=== PATIENT | male | born 1945 | race Two or more races ===

== ENCOUNTER 2022-01-29 19:47 | Inpatient (IN) | payer MEDICARE, OTHER ==
[~2022-01-29] VITALS: Ht 165.1 cm; Wt 52.6 kg
--- NOTE | 2022-01-29 20:10 | NUR ---
KALEE- DAUGHTER IN LAW. [phone]
[2022-01-29] MEDS ORDERED: LIDOCAINE 2% JEL UROJET 10 ML MM ONE (20:19)
[2022-01-29] MEDS ORDERED: IV NS 0.9% 1,000 ML BAG IV ONE ×2 (20:30→22:00)
--- NOTE | 2022-01-29 20:33 | NUR ---
BIBRA FROM SNF FOR C/O ALOC, FEVER, AND TACHYCARDIA. PT CHANGED INTO GOWN AND PLACED ON MONITOR AND NOTED TO HAVE LOW 02 SAT AND TACHYCARDIC. PLACED ON NRB 15LPM WITH INPROVEMENT TO O2. PT AWAKE X0. WAS AT BEDSIDE FOR EVAL.
--- NOTE | 2022-01-29 20:36 | NUR ---
URINE COLLECTED AND SENT TO LAB
--- NOTE | 2022-01-29 20:36 | NUR ---
COVID SWAB DONE AND SENTT O LAB
--- NOTE | 2022-01-29 20:36 | NUR ---
BLOOD AND CULTURES COLLECTED AND SENTT O LAB
--- NOTE | 2022-01-29 20:42 | NUR ---
MRSA SWAB COLLECTED AND SENT TO LAB. PATIENT'S BELONGINGS LIST DONE.
[2022-01-29 20:57] LABS: BASOPHILS # (AUTO) 0.1 K/uL (0.0-0.2); BASOPHILS % (AUTO) 0.5 % (0.0-2.0); EOSINOPHILS % (AUTO) 0.3 % (0.0-6.0); HEMATOCRIT 47 % (39-51); HEMOGLOBIN 15.4 g/dL (13.5-17.5); LYMPHOCYTES # (AUTO) 1.3 K/uL (0.8-4.8); LYMPHOCYTES % (AUTO) 8.3 % (20.0-44.0); MEAN CORPUSCULAR HGB CONC 33 g/dl (31.0-36.0); MEAN CORPUSCULAR VOLUME 92 fL (80-96); MONOCYTES # (AUTO) 0.8 K/uL (0.1-1.30); MONOCYTES % (AUTO) 5.3 % (2.0-12.0); NEUTROPHILS # (AUTO) 13.3 K/uL (1.8-8.9); NEUTROPHILS % (AUTO) 85.6 % (43.0-81.0); PLATELET COUNT (AUTO) 283 K/uL (150-450); RED BLOOD CELL COUNT(AUTO) 5.18 MIL/uL (4.5-6.0); WHITE BLOOD COUNT (AUTO) 15.6 K/uL (4.3-11.0)
[2022-01-29 20:58] LABS: BILIRUBIN,URINE NEGATIVE (NEGATIVE); COLOR,URINE YELLOW (YELLOW); LEUKOCYTE ESTERASE ,URINE NEGATIVE (NEGATIVE); NITRITE, URINE NEGATIVE (NEGATIVE); PH,URINE 6.5 (5.0-8.0); PROTEIN,URINE NEGATIVE (NEGATIVE); UGLUCOSE NEGATIVE (NEGATIVE)
[2022-01-29 21:09] LABS: BACTERIA,URINE None seen /HPF (None Seen); WBC,URINE 0-2 /HPF (0-3)
[2022-01-29 21:10] LABS: MUCUS,URINE Few /LPF (None Seen); URINE AMORPHOUS URATE Many /HPF (None Seen)
[2022-01-29 21:26] LABS: SQUAMOUS EPITHELIAL CELL,UR 0-2 /HPF (None Seen)
[2022-01-29] MEDS ORDERED: CEFTRIAXONE 1GM BAG (ER ONLY) 50 ML IV ONE ×2 (22:00→22:13)
[2022-01-29] MEDS ORDERED: ONDANSETRON HCL/PF 4 MG/2 ML VIAL IVP PRN (22:30)
[2022-01-29] MEDS ORDERED: MAGNESIUM HYDROXIDE 30 ML UDC PO PRN (22:30)
[2022-01-29] MEDS ORDERED: MAG HYDROX/AL HYDROX/SIMETH 30 ML UDC PO PRN (22:30)
[2022-01-29] MEDS ORDERED: IV NS 0.9% 1,000 ML IV PRN (22:30)
[2022-01-29 22:59] LABS: CALCIUM, SERUM 9.9 mg/dL (8.5-10.1); CARBON DIOXIDE 34 mmol/L (21-32); CHLORIDE 113 mmol/L (98-107); CREATININE 0.9 mg/dL (0.6-1.3); GLUCOSE 224 mg/dL (74-106); SODIUM SERUM 153 mmol/L (136-145); UREA NITROGEN, BLOOD 38 mg/dL (7-18)
[2022-01-29 23:06] LABS: ALANINE AMINOTRANSFERASE 50 U/L (12-78); ALBUMIN 3.9 g/dL (3.4-5.0); ALKALINE PHOSPHATASE 101 U/L (46-116); ASPARTATE AMINOTRANSFERASE 41 U/L (15-37); BILIRUBIN,DIRECT 0.2 mg/dL (0.0-0.2); BILIRUBIN,TOTAL 0.9 mg/dL (0.2-1.0); TOTAL PROTEIN, SERUM 9.1 g/dL (6.4-8.2)
[2022-01-30] VITALS (37 sets, daily range): BP systolic 120–160; BP diastolic 57–93
--- NOTE | 2022-01-30 00:10 | NUR ---
ROOM 308-1
[2022-01-30] MEDS ORDERED: CEFEPIME 1 GM in IV D5W 50 ML IV ONE (01:00)
--- NOTE | 2022-01-30 01:10 | NUR ---
REPORT GIVEN TO JANAE
--- NOTE | 2022-01-30 01:49 | NUR ---
PT TRANSPORTED TO ROOM 309 ON MEDICAL OFFICE ASSISTANT INSTRUCTOR PER ACLS PROTOCOL
--- NOTE | 2022-01-30 02:00 | NUR ---
CLINICAL SOCIAL WORK THERAPIST NOTE PATIENT ARRIVED IN UNIT AT 0141 AM VIA STRETCHER, ACCOMPANIED BY 2 ER PERSONNELS. A/OX1, POOR HISTORIAN. NO S/S OF APPARENT DISTRESS IN 10LPM OF O2 VIA SIMPLE MASK. NOT EXHIBITING PAIN VIA FLACC. TELE MONITOR READING SR 97 BPM. PATIENT FULL CODE, POLST IN FILE. NEW ID BAND ON PATIENT. NO BELONGINGS BUT THE GOWN FROM HIS SNF. IV ACCESS ON L. WRIST #18G-- STARTED ON IV NS @75MLS.HR. G-TUBE NOTED AND FLUSHED. SAFETY IN PLACE. ADMISSION V/S FOLLOWS: 147/78, HR-98, RR-19, T-98.0, SATURATION 96%. WILL FOLLOW THROUGH DOCTOR'S ORDERS.
[2022-01-30] MEDS: ACETAMINOPHEN 325 MG TABLET PO PRN ×3 (02:20→23:47)
[2022-01-30] MEDS ORDERED: CEFEPIME 1 GM VIAL ONE (02:33)
[2022-01-30] MEDS: ENOXAPARIN SODIUM 40 MG/0.4 ML DISP.SYRIN SQ SCH (04:40)
[2022-01-30] MEDS: GLUCERNA 1.2 1,000 ML BOTTLE GT PRN (04:41)
--- NOTE | 2022-01-30 06:25 | NUR ---
STRATEGIC PLANNING ANALYST NOTE REPORT GIVEN TO WYATT KAPOOR FOR CONTINUITY OF CARE
[2022-01-30 07:09] LABS: BASOPHILS # (AUTO) 0.1 K/uL (0.0-0.2); BASOPHILS % (AUTO) 0.4 % (0.0-2.0); HEMATOCRIT 43 % (39-51); HEMOGLOBIN 13.9 g/dL (13.5-17.5); LYMPHOCYTES # (AUTO) 1.2 K/uL (0.8-4.8); LYMPHOCYTES % (AUTO) 8.2 % (20.0-44.0); MEAN CORPUSCULAR HGB CONC 32 g/dl (31.0-36.0); MEAN CORPUSCULAR VOLUME 92 fL (80-96); MONOCYTES # (AUTO) 0.6 K/uL (0.1-1.30); MONOCYTES % (AUTO) 4.2 % (2.0-12.0); NEUTROPHILS # (AUTO) 12.2 K/uL (1.8-8.9); NEUTROPHILS % (AUTO) 87.2 % (43.0-81.0); PLATELET COUNT (AUTO) 227 K/uL (150-450); RED BLOOD CELL COUNT(AUTO) 4.68 MIL/uL (4.5-6.0); WHITE BLOOD COUNT (AUTO) 14.1 K/uL (4.3-11.0)
[2022-01-30 07:11] LABS: CALCIUM, SERUM 8.3 mg/dL (8.5-10.1); CARBON DIOXIDE 30 mmol/L (21-32); CHLORIDE 115 mmol/L (98-107); CREATININE 0.9 mg/dL (0.6-1.3); GLUCOSE 190 mg/dL (74-106); MAGNESIUM 2.3 mg/dL (1.8-2.4); PHOSPHORUS 2.6 mg/dL (2.5-4.9); SODIUM SERUM 154 mmol/L (136-145); UREA NITROGEN, BLOOD 26 mg/dL (7-18)
[2022-01-30 07:18] LABS: CHOLESTEROL 91 mg/dL (<200); HDL CHOLESTEROL 44 mg/dL (40-60); LDL 42 mg/dL (0-99); TRIGLYCERIDES 39 mg/dL (30-150)
--- NOTE | 2022-01-30 07:30 | NUR ---
DRIVER LICENSE REVIEWING OFFICER OPENING NOTES: RECEIVED PT ASLEEP BUT EASILY ROUSED. A/OX1, RESPONDS TO PAIN STIMULI AND NODS HEAD TO YES OR NO QUESTION. . NO S/S OF APPARENT DISTRESS @ 10LPM OF O2 VIA SIMPLE MASK. NOT EXHIBITING PAIN VIA FLACC. TELE MONITOR READING ST 102 BPM. PATIENT FULL CODE, POLST ON FILE. IV ACCESS ON L. WRIST #18G, STARTED ON IV NS @75MLS.HR. G-TUBE FEEDING GLUCERNA 1.2 @ 55ML/HR. SAFETY IN PLACE: HOB ELEVATED AND LOCKED AT LOWEST POSITION, SIDERAILS UP X3, CALL LIGHT AND TABLE WITHIN REACH WILL CONT TO MONITOR.
[2022-01-30] MEDS ORDERED: NUT.237L30 GT (08:06)
[2022-01-30] MEDS ORDERED: ONDA4TAB5 GT (08:06)
[2022-01-30] MEDS ORDERED: SENN-261 GT (08:06)
[2022-01-30] MEDS ORDERED: AMLO-213 GT (08:06)
[2022-01-30] MEDS ORDERED: CLON0.3P TD (08:06)
[2022-01-30] MEDS ORDERED: ATOR10TA GT (08:06)
[2022-01-30] MEDS ORDERED: POLY17PO4 GT (08:06)
[2022-01-30] MEDS ORDERED: ACET-868 GT ×2 (08:06)
[2022-01-30] MEDS ORDERED: HYDR-4076 GT (08:06)
[2022-01-30] MEDS ORDERED: DEXT50DI8 IV (08:06)
[2022-01-30] MEDS ORDERED: BISA10SU11 RC (08:06)
[2022-01-30] MEDS ORDERED: ASPI-1169 GT (08:06)
[2022-01-30] MEDS ORDERED: INSU100V27 SQ (08:06)
[2022-01-30] MEDS ORDERED: MAGN400O6 GT (08:06)
[2022-01-30] MEDS ORDERED: NA P133E RC (08:06)
[2022-01-30] MEDS ORDERED: ENOX40DI SQ (08:06)
[2022-01-30] MEDS: CEFEPIME 2 GM in IV D5W 100 ML IV SCH ×2 (08:42→21:12)
[2022-01-30] MEDS ORDERED: GLUCERNA 1.2 1,000 ML BOTTLE NG SCH (09:00)
--- NOTE | 2022-01-30 09:30 | NUR ---
CLINICAL TRIAL SPECIALIST NOTES: L. WRIST IV ACCESS SHOWING S/S OF INFILTRATION, DC'D, APPLIED ICE PACK TO AFFECTED AREA.
[2022-01-30] MEDS: IPRATROPIUM NEB FS 0.5 MG/2.5 ML AMPUL.NEB NEB SCH ×4 (09:55→22:47)
[2022-01-30] MEDS ORDERED: ALBUTEROL HALF STRENGTH 1.25 MG/3 ML VIAL.NEB NEB SCH (10:00)
--- NOTE | 2022-01-30 10:00 | NUR ---
MOLD DESIGNER NOTES: NS DC'D PER MD ORDER, REPLACED WITH D5W
[2022-01-30 10:35] LABS: BAND % (MANUAL) 8 % (0.0-5.0); BASOPHILS % (MANUAL) 0 % (0.0-2.0); EOSINOPHILS % (MANUAL) 0 % (0-4); LYMPHOCYTES % (MANUAL) 11 % (16-48); MONOCYTES % (MANUAL) 6 % (0-11.0); NEUTROPHILS % (MANUAL) 75 (42-76)
[2022-01-30] MEDS: POTASSIUM CHLORIDE 20 MEQ POWDER PACKET NG SCH ×3 (10:43→12:45)
[2022-01-30] MEDS: ALBUTEROL HALF STRENGTH 1.25 MG/3 ML VIAL.NEB NEB SCH ×4 (11:30→22:48)
[2022-01-30] MEDS ORDERED: DEXTROSE 50%-WATER 50 ML DISP.SYRIN IV PRN (12:30)
[2022-01-30] MEDS: BLOOD SUGAR DIAGNOSTIC 1 EACH STRIP IN SCH ×2 (12:48→18:00)
--- NOTE | 2022-01-30 14:30 | NUR ---
RN NOTES RECEIVED PT IN ROOM 251, PT IS ALERT/ NONVERBAL , MUMBLES AT TIMES , FOLLOWS SIMPLE COMMAND, ON NONREBREATHER MASK , SOB , O2 SAT IN MID 90' , HR IN 120'S, TEM 100.2 AXILLARY , TF AT 55 CC/HR RUNNING VIA PEG , NO RESIDUAL NOTED, NEW IV SITES STARTED ON R ARM , ROCHA DRAINING TO GRAVITY, BM x1 NOTED, SR UP x3,CALL LIGHT WITHIN EASY REACH, BED LOCKED AND IN LOWEST POSITION, CONTINUE TO MONITOR .
[2022-01-30] MEDS: IV D5W 1,000 ML IV PRN (15:09)
[2022-01-30 15:19] LABS: ABG BASE EXCESS 0.3 mmol/L; ABG OXYGEN SATURATION 98.9 % (92.0-98.5); ABG PCO2 44.9 mmHg (35.0-45.0); ABG PH 7.378 (7.350-7.450); ABG PO2 154.7 mmHg (75.0-100.0); AaDO2 404.8 mmHg; COHb 0.5 % (0.5-1.5); MetHb 0.5 % (0.0-1.5); O2Hb 97.9 % (94.0-97.0); SITE, ABG Right Radial; VENT MODE, BG NRB MASK 85%
--- NOTE | 2022-01-30 15:44 | NUR ---
TOOLING MANAGER NOTES: PT TRANSFERED TO ICU PER MD YANNA D/T CONTINUED O2 DESATURATION DESPITE OF RT TREATMENT X3. BP- 136/66, HR- 129, TEMP- 98.7, O2 SAT @ 90% UPON TRANSFER. ENDORSED TO RUG DYER.
--- NOTE | 2022-01-30 15:46 | NUR ---
RT PATIENT REC'D TRANSFER FROM [facility]. ABG DONE AND FIO2 TITRATED DOWN FROM NRB MASK TO NC 5L. RN AWARE.
[2022-01-30] MEDS: INSULIN REGULAR, HUMAN 100 UNIT/ML 3 ML VIAL SQ PRN (18:00)
--- NOTE | 2022-01-30 18:27 | NUR ---
RN NOTES PT IS MORE ALERT, ON FACE MASK AT 10L , O2 SAT WNL, NONVERBAL , NO DISTESS NOTED, WILL ENDORSE TO EQUIPMENT OPERATOR WAREHOUSE NURSE FOR CONTINUITY OF CARE .
--- NOTE | 2022-01-30 19:50 | NUR ---
ICU/BAG MAKER RT WAS ABLE TO REMOVE NON REBREATHER MASK TO SIMPLE MASK AT 10 LITERS. WILL MONITOR THIS PT FOR ANY RESP. DISTRESS
--- NOTE | 2022-01-30 22:53 | NUR ---
ICU/SPRAY GUN OPERATOR PT IS TRYING TO GET OUT OF BED, PULLING AT IV'S. PLACED RESTRAINTS ON PT TO AVOID THIS. WILL CONTINUE TO MONITOR THIS.
--- NOTE | 2022-01-30 23:19 | NUR ---
ICU/BLOCK CABLEMAN PT WAS DEEP SUCTION FOR RESP. SPECIMEN, ORDERED BY ID. THEN PLACED ON 6 LITERS N/C . WILL MONITOR THIS PT.
[2022-01-31] VITALS (61 sets, daily range): BP systolic 109–173; BP diastolic 21–100
[2022-01-31] MEDS: INSULIN REGULAR, HUMAN 100 UNIT/ML 3 ML VIAL SQ PRN ×3 (00:18→17:23)
[2022-01-31] MEDS: BLOOD SUGAR DIAGNOSTIC 1 EACH STRIP IN SCH ×5 (00:19→23:59)
--- NOTE | 2022-01-31 01:00 | NUR ---
ICU/FLOOR SPACE ALLOCATOR PT HAD TEMP. 101.1, GAVE TYLENOL VIA G/TUBE AND COOLING MEASURES DONE ALONG WITH ICE BATH TO HELP REDUCE FEVER.
[2022-01-31] MEDS: IPRATROPIUM NEB FS 0.5 MG/2.5 ML AMPUL.NEB NEB SCH ×6 (03:13→23:33)
[2022-01-31] MEDS: ALBUTEROL HALF STRENGTH 1.25 MG/3 ML VIAL.NEB NEB SCH ×6 (03:13→23:33)
[2022-01-31] MEDS: GLUCERNA 1.2 1,000 ML BOTTLE GT PRN (04:16)
[2022-01-31] MEDS: IV D5W 1,000 ML IV PRN ×2 (04:16→16:43)
[2022-01-31 04:17] LABS: BASOPHILS % (AUTO) 0.3 % (0.0-2.0); EOSINOPHILS % (AUTO) 0.2 % (0.0-6.0); HEMATOCRIT 41 % (39-51); HEMOGLOBIN 13.7 g/dL (13.5-17.5); LYMPHOCYTES # (AUTO) 1.7 K/uL (0.8-4.8); LYMPHOCYTES % (AUTO) 11.8 % (20.0-44.0); MEAN CORPUSCULAR HGB CONC 33 g/dl (31.0-36.0); MEAN CORPUSCULAR VOLUME 92 fL (80-96); MONOCYTES # (AUTO) 0.7 K/uL (0.1-1.30); MONOCYTES % (AUTO) 4.7 % (2.0-12.0); NEUTROPHILS # (AUTO) 11.9 K/uL (1.8-8.9); PLATELET COUNT (AUTO) 202 K/uL (150-450); RED BLOOD CELL COUNT(AUTO) 4.52 MIL/uL (4.5-6.0); WHITE BLOOD COUNT (AUTO) 14.3 K/uL (4.3-11.0)
[2022-01-31 04:22] LABS: CALCIUM, SERUM 8.5 mg/dL (8.5-10.1); CARBON DIOXIDE 32 mmol/L (21-32); CHLORIDE 112 mmol/L (98-107); CREATININE 0.9 mg/dL (0.6-1.3); GLUCOSE 98 mg/dL (74-106); MAGNESIUM 2.4 mg/dL (1.8-2.4); PHOSPHORUS 1.8 mg/dL (2.5-4.9); POTASSIUM 3.4 mmol/L (3.5-5.1); SODIUM SERUM 148 mmol/L (136-145); UREA NITROGEN, BLOOD 20 mg/dL (7-18)
--- NOTE | 2022-01-31 04:36 | NUR ---
ICU/VALVE GRINDER UNABLE TO SCAN THE TUBE FEEDING DUE TO IT SCANNED OVER THE MOUNT@1100MNL. HAD JUST TO ADMINISTRATE IT.
--- NOTE | 2022-01-31 07:21 | NUR ---
RN NOTE PATIENT RECEIVED IN BED, EYES CLOSED, WITH SOME RESTLESSNESS. PATIENT ON 8L O2 SIMPLE MASK SAT 95% ON BEDSIDE MONITOR. GTUBE IN PLACE RUNNING GLUCERNA AT 55C/HR. RIGHT AC20G AND RIGHT HAND 22G IV IN PLACE RUNNING D5W AT 100CC/HR. ROCHA CATH IN PLACE, PATENT AND DRAINING CLEAR ELIER COLOR URINE. BILATERAL SOFT WRIST RESTRAIN IN PLACE, PT RESTLESS ATTEMPTING TO GET OUT OF BED. BED LOCKED AND IN LOWEST POSITION, CALL LIGHT WITHIN REACH, 3 SIDE RAILS UP.
[2022-01-31] MEDS: ENOXAPARIN SODIUM 40 MG/0.4 ML DISP.SYRIN SQ SCH (08:20)
[2022-01-31] MEDS: CEFEPIME 2 GM in IV D5W 100 ML IV SCH (08:20)
[2022-01-31] MEDS ORDERED: POTASSIUM CHLORIDE 20 MEQ POWDER PACKET NG SCH (10:30)
--- NOTE | 2022-01-31 11:40 | NUR ---
SS Note: SW requested to facilitate call with family and MD for possible trach placement. SW discussed with Jeannette Rajan DO. Per Dr. Rajan, Dr. Flower has suggest we continue to monitor the pt. and maybe tomorrow we can have a more definite answer. SW will be available as needed. SW notified charge nurse.
[2022-01-31] MEDS: PIPERACILLIN /TAZOBACTAM 3.375 G in IV D5W 100 ML IV SCH ×2 (12:20→21:14)
[2022-01-31] MEDS ORDERED: IV NS 0.9% 250 ML IV PRN (12:30)
[2022-01-31] MEDS ORDERED: PIPERACILLIN /TAZOBACTAM 3.375 G in IV D5W 50 ML IV SCH (13:00)
[2022-01-31] MEDS ORDERED: NEUTRA PHOS 1 POWD.PACKET GT ONE (16:00)
--- NOTE | 2022-01-31 18:20 | NUR ---
RN NOTE PT PULLED RIGHT HAND 22G IV.
--- NOTE | 2022-01-31 18:30 | NUR ---
RN NOTE PATIENT REMAINS IN BED, EYES OPEN, WITH SOME RESTLESSNESS. PATIENT ON 8L O2 SIMPLE MASK SAT 100% ON BEDSIDE MONITOR. GTUBE IN PLACE RUNNING GLUCERNA AT 55C/HR. RIGHT AC 20G IN PLACE RUNNING D5W AT 100CC/HR. ROCHA CATH IN PLACE, PATENT AND DRAINING CLEAR ELIER COLOR URINE. BILATERAL SOFT WRIST RESTRAIN IN PLACE, SKIN WARM AND INTACT. ALL NEEDS ATTENDED DURING SHIFT. BED LOCKED AND IN LOWEST POSITION, CALL LIGHT WITHIN REACH, 3 SIDE RAILS UP. WILL ENDORSE TO POLICY ANALYST NURSE FOR JAKE.
--- NOTE | 2022-01-31 20:00 | NUR ---
RN OPENING NOTES RECEIVED PATIENT ON BED, ORIENTED TO SELF, PASHTO SPEAKING, WITH SOME RESTLESSNESS. ON SIMPLE MASK @ 8LPM SATING AT 100%. RESPIRATORY EVEN AND UNLABORED, NO SOB NOTED. NOTED WITH TEMPERATURE 99.7, COOLING MEASURE PROVIDED, ACETAMINOPHEN 650MG VIA PEG TUBE GIVEN. NO S/S OF DISTRESS NOTED. PATIENT RAC #20, FLUSHED WITH NS, NO S/S OF INFILTRATION NOTED AT SITE. WITH IVF OF D5W @ 100 ML/HR. PEG- TUBE PATENT, INTACT, VERIFIED PLACEMENT BY AUSCULTATION, NO RESIDUAL NOTED UPON ASPIRATION, RUNNING WITH GLUCERNA 1.2 @ 55 ML/HR X 20 HRS. HEAD OF BED KEPT ELEVATED. ROCHA CATHETER DRAINING WITH CLEAR YELLOW URINE OUTPUT VIA GRAVITY. WITH BILATERAL SOFT WRIST RESTRAINT, REASSESSED Q2HRS. ALL SAFETY MEASURE PROVIDED. BED IN LOWEST POSITION, LOCKED. BED ALARM ARMED. CONTINUE TO MONITOR.
[2022-01-31] MEDS: ACETAMINOPHEN 325 MG TABLET PO PRN (20:19)
--- NOTE | 2022-01-31 21:00 | NUR ---
RN NOTES TEMPERATURE RECHECKED AND OBTAINED 98.1 F DEGREES, PATIENT AWAKE, NOT IN DISTRESS. CONTINUE TO MONITOR
[2022-02-01] VITALS (27 sets, daily range): BP systolic 112–154; BP diastolic 55–112
[2022-02-01] MEDS: INSULIN REGULAR, HUMAN 100 UNIT/ML 3 ML VIAL SQ PRN ×5 (00:01→23:57)
[2022-02-01] MEDS: IV D5W 1,000 ML IV PRN ×2 (03:06→13:45)
[2022-02-01] MEDS: ALBUTEROL HALF STRENGTH 1.25 MG/3 ML VIAL.NEB NEB SCH ×6 (03:51→23:12)
[2022-02-01] MEDS: IPRATROPIUM NEB FS 0.5 MG/2.5 ML AMPUL.NEB NEB SCH ×6 (03:51→23:12)
[2022-02-01 04:05] LABS: BASOPHILS # (AUTO) 0.1 K/uL (0.0-0.2); BASOPHILS % (AUTO) 0.4 % (0.0-2.0); HEMATOCRIT 38 % (39-51); HEMOGLOBIN 12.5 g/dL (13.5-17.5); LYMPHOCYTES # (AUTO) 1.3 K/uL (0.8-4.8); LYMPHOCYTES % (AUTO) 9.7 % (20.0-44.0); MEAN CORPUSCULAR HGB CONC 33 g/dl (31.0-36.0); MEAN CORPUSCULAR VOLUME 90 fL (80-96); MONOCYTES # (AUTO) 0.8 K/uL (0.1-1.30); MONOCYTES % (AUTO) 5.5 % (2.0-12.0); NEUTROPHILS # (AUTO) 11.2 K/uL (1.8-8.9); NEUTROPHILS % (AUTO) 81.4 % (43.0-81.0); PLATELET COUNT (AUTO) 177 K/uL (150-450); RED BLOOD CELL COUNT(AUTO) 4.17 MIL/uL (4.5-6.0); WHITE BLOOD COUNT (AUTO) 13.8 K/uL (4.3-11.0)
[2022-02-01] MEDS: GLUCERNA 1.2 1,000 ML BOTTLE GT PRN (04:11)
[2022-02-01 04:40] LABS: CALCIUM, SERUM 8.1 mg/dL (8.5-10.1); CARBON DIOXIDE 32 mmol/L (21-32); CHLORIDE 104 mmol/L (98-107); CREATININE 0.8 mg/dL (0.6-1.3); GLUCOSE 181 mg/dL (74-106); MAGNESIUM 2.1 mg/dL (1.8-2.4); PHOSPHORUS 1.6 mg/dL (2.5-4.9); POTASSIUM 3.6 mmol/L (3.5-5.1); SODIUM SERUM 140 mmol/L (136-145); UREA NITROGEN, BLOOD 13 mg/dL (7-18)
[2022-02-01] MEDS: PIPERACILLIN /TAZOBACTAM 3.375 G in IV D5W 100 ML IV SCH ×3 (05:30→20:51)
[2022-02-01] MEDS: BLOOD SUGAR DIAGNOSTIC 1 EACH STRIP IN SCH ×3 (05:52→17:18)
--- NOTE | 2022-02-01 07:00 | NUR ---
STRICKLER ATTENDANT Bedside report taken from Frederick SCHNEIDER. pt asleep, arousable. obtunded, does not open eyes, does not follow commands, moves bue and ble 3/5. PERRLA. pt on 8 L simple mask, tolerating well. umm lung sounds coarse and diminished at the bases. pt has peg tube, pt on glucerna 1.2 at 55ml/hr tolerating well. no residuals noted. Pt has nicholas. intact and draining clear, mona colored urine. pt has bruising in bue, no pressure ulcers noted. all lines traced. all drips verified. safety measures in place. no signs of acute distress at this time. will continue to monitor.
--- NOTE | 2022-02-01 07:16 | NUR ---
RN NOTES PATIENT SLEEPING ON BED, REMAIN STABLE. RESPIRATORY EVEN AND UNLABORED, NO SOB NOTED. NO S/S OF DISTRESS NOTED. WITH IVF OF D5W @ 100 ML/HR. PEG- TUBE PATENT, INTACT, VERIFIED PLACEMENT BY AUSCULTATION, NO RESIDUAL NOTED UPON ASPIRATION, RUNNING WITH GLUCERNA 1.2 @ 55 ML/HR X 20 HRS. HEAD OF BED KEPT ELEVATED. ROCHA CATHETER DRAINING WITH CLEAR YELLOW URINE OUTPUT VIA GRAVITY. WITH BILATERAL SOFT WRIST RESTRAINT, REASSESSED Q2HRS. ALOL DUE MEDS GIVEN. ALL SAFETY MEASURE PROVIDED. BED IN LOWEST POSITION, LOCKED. BED ALARM ARMED. REPORT GIVEN TO MORNING SHIFT NURSE FOR JAKE.
[2022-02-01] MEDS: ENOXAPARIN SODIUM 40 MG/0.4 ML DISP.SYRIN SQ SCH (08:58)
[2022-02-01] MEDS ORDERED: NEUTRA PHOS 1 POWD.PACKET GT ONE (10:00)
--- NOTE | 2022-02-01 14:17 | NUR ---
MEAT COOLER Pt bathed and cleaned. linen change done. skin check done, skin intact, no new wounds or pressure ulcers noted. pt tolerated well. pt awake, alert and oriented x3, follows commands at this time. umm wrist restraints removed, pt informed not to remove or pull lines and not to get out of bed. pt understands and is compliant at this time. pt denies any pain or discomfort. vitals stable. safety measures in place. will continue to monitor.
--- NOTE | 2022-02-01 18:15 | NUR ---
ELECTROSTATIC PAINT OPERATOR Pt transfered to tele room 110 via bed with monitor. pt has no belongings at bedside. pt awake, alert and oriented but restless. bedside report given to [facility] nurse Obey SCHNEIDER. all lines traced. vitals stable. safety measures in place. pt reoriented to new room. no signs of acute distress at this time.
--- NOTE | 2022-02-01 18:16 | NUR ---
RN NOTE RECEIVED PATIENT REPORT FROM ICU NURSE. PATIENT ALERT AND ORIENTED TIMES 4. ON NASAL CANULA 4 LITERS PER MINUTE SATURATION NORMAL. NORMAL SINUS RHYTHM ON TELEMETRY MONITORING. IV ACCESS ON RIGHT FOREARM CURRENTLY RUNNING D5W AT 75 MLS/HR. G-TUBE RUNNING FEEDING AT 55 MLS/HR, NO RESIDUAL. ROCHA CATHETER NOTED, DRAINING YELLOW URINE. SAFETY MEASURES IMPLEMENTED, CALL LIGHT WITHIN REACH, BED IN LOWEST POSITION, SIDE RAILS UP. WILL ENDORSE TO NIGHTSHIFT RN FOR CONTINUATION OF CARE.
--- NOTE | 2022-02-01 19:10 | NUR ---
RN NOTES RECEIVED REPORT FROM MORNING RN. PATIENT IN BED A/0 X2-3. WITH OXYGEN INHALATION AT 4 LPM VIA NASAL CANULA TOLERATING WELL SATING 99% NO SOB NO DISTRESS NOTED AT THIS TIME. WITH IV ACCESS AT R AC PATENT FLUSHES WELL. ON CONTINUOS IVF D5W @ 100CC/HR. WITH GTF PATENT RUNNING GLUCERNA @ 55CC/HR X 20 HOURS. WITH ROCHA CATHETER CONNECTED TO URINE BAG PATENT DRAINING YELLOWISH URINE OUTPUT. ALL SAFETY MEASURES IN PLACE AT ALL TIMES. HOB ELEVATED. CALL LIGHT WITHIN REACH. WILL CLOSELY MONITOR THE PATIENT
[2022-02-02] VITALS: BP 142/88
[2022-02-02] MEDS: BLOOD SUGAR DIAGNOSTIC 1 EACH STRIP IN SCH ×4 (00:23→17:25)
[2022-02-02] MEDS: IV D5W 1,000 ML IV PRN (01:43)
[2022-02-02] MEDS: ALBUTEROL HALF STRENGTH 1.25 MG/3 ML VIAL.NEB NEB SCH ×4 (03:13→14:40)
[2022-02-02] MEDS: IPRATROPIUM NEB FS 0.5 MG/2.5 ML AMPUL.NEB NEB SCH ×4 (03:13→14:39)
[2022-02-02 04:00] VITALS: BP 123/73
[2022-02-02] MEDS: PIPERACILLIN /TAZOBACTAM 3.375 G in IV D5W 100 ML IV SCH ×2 (04:39→13:33)
[2022-02-02] MEDS: ACETAMINOPHEN 325 MG TABLET PO PRN (04:53)
[2022-02-02 06:21] LABS: BASOPHILS % (AUTO) 0.2 % (0.0-2.0); EOSINOPHILS % (AUTO) 3.5 % (0.0-6.0); HEMATOCRIT 36 % (39-51); LYMPHOCYTES # (AUTO) 1.3 K/uL (0.8-4.8); LYMPHOCYTES % (AUTO) 11.7 % (20.0-44.0); MEAN CORPUSCULAR HGB CONC 33 g/dl (31.0-36.0); MEAN CORPUSCULAR VOLUME 90 fL (80-96); MONOCYTES # (AUTO) 1.1 K/uL (0.1-1.30); MONOCYTES % (AUTO) 9.6 % (2.0-12.0); NEUTROPHILS # (AUTO) 8.3 K/uL (1.8-8.9); PLATELET COUNT (AUTO) 206 K/uL (150-450); RED BLOOD CELL COUNT(AUTO) 4.04 MIL/uL (4.5-6.0)
[2022-02-02] MEDS: GLUCERNA 1.2 1,000 ML BOTTLE GT PRN (06:21)
[2022-02-02 06:55] LABS: CALCIUM, SERUM 8.6 mg/dL (8.5-10.1); CREATININE 0.7 mg/dL (0.6-1.3); MAGNESIUM 2.1 mg/dL (1.8-2.4); PHOSPHORUS 1.6 mg/dL (2.5-4.9); POTASSIUM 3.5 mmol/L (3.5-5.1)
--- NOTE | 2022-02-02 06:59 | NUR ---
RN NOTES PATIENT REMAINS STABLE NO SIGNIFICANT CHANGES IN HEALTH CONDITION. STILL WITH OXYGEN INHALATION AT 4LPM SATING 98%. WITH GT PATENT ON CONTINUOS FEEDING. WITH R AC IV LINE PATENT ON CONTINUOS IVF 100CC/HR. ALL SAFETY MEASURES IN PLACE ROCHA CATH PATENT DRAINING YELLOWISH URINE. CALL LIGHT WITHIN REACH. WILL ENDORSED TO MORNING SHIFT FOR JAKE
--- NOTE | 2022-02-02 07:30 | NUR ---
RN OPENING NOTES RECEIVED PATIENT ON BED, ITALIAN SPEAKING, WITH SOME RESTLESSNESS. ON SIMPLE MASK @ 4LPM, O2 SAT IS AT 99%. RESPIRATION EVEN AND UNLABORED, NO SOB NOTED. PATIENT RFA #20, FLUSHED WITH NS, NO S/S OF INFILTRATION NOTED AT SITE. WITH D5W INFUSING @ 100 ML/HR. PEG- TUBE PATENT, INTACT, VERIFIED PLACEMENT BY AUSCULTATION, NO RESIDUAL NOTED UPON ASPIRATION, INFUSING GLUCERNA 1.2 @ 55 ML/HR X 20 HRS, ON 0400, OFF 0000. HEAD OF BED KEPT ELEVATED. ROCHA CATHETER DRAINING CLEAR YELLOW URINE OUTPUT VIA GRAVITY. WITH BILATERAL SOFT WRIST RESTRAINT, REASSESSED Q2HRS. ALL SAFETY MEASURES IN PLACE. BED IN LOWEST POSITION, LOCKED. BED ALARM ARMED. CALL LIGHT WITHIN REACH. WILL CONTINUE PLAN OF CARE.
[2022-02-02 08:00] VITALS: BP 133/95
[2022-02-02] MEDS: ENOXAPARIN SODIUM 40 MG/0.4 ML DISP.SYRIN SQ SCH (09:36)
[2022-02-02] MEDS ORDERED: Sodium Phosphate 30 MMOL in IV NS 0.9% 250 ML IV SCH (10:00)
[2022-02-02] MEDS ORDERED: ALBU1.25 NEB (10:19)
[2022-02-02] MEDS ORDERED: PIPE3.379 IV (10:19)
[2022-02-02] MEDS ORDERED: IPRA0.2S9 NEB (10:19)
[2022-02-02 11:05] LABS: BAND % (MANUAL) 7 % (0.0-5.0); EOSINOPHILS % (MANUAL) 3 % (0-4); LYMPHOCYTES % (MANUAL) 8 % (16-48); MONOCYTES % (MANUAL) 7 % (0-11.0); NEUTROPHILS % (MANUAL) 75 (42-76)
[2022-02-02 12:00] VITALS: BP 130/66
[2022-02-02] MEDS: INSULIN REGULAR, HUMAN 100 UNIT/ML 3 ML VIAL SQ PRN ×2 (13:36→17:26)
[2022-02-02 16:00] VITALS: BP 139/76
--- NOTE | 2022-02-02 19:10 | NUR ---
READY FOR DISCHARGE INSTRUCTION/REPORT GIVEN TO JESSICA HERRERA RN. IV IN PLACE REQUESTED BY SNF RN. FC AND TELEMETRY DISCONTINUED. ENDORSED TO DRAY DRIVER NURSE FOR CONTINUITY OF CARE WHILE AWAITING TRANSFER.
--- NOTE | 2022-02-02 19:15 | NUR ---
RN NOTES RECEIVED REPORT FROM MORNING RN. PATIENT IN BED A/O X2 WITH PERIODS OF CONFUSION. ON OXYGEN INHALATION AT 4 LPM TOLERATING WELL SATING 98% NO SOB NO DISTRESS NOTED AT THIS TIME. WITH GT PATENT PATENT. VITAL SIGNS TAKEN AND RECORDED AFEBRILE. ALL SAFETY MEASURES IN PLACE AT ALL TIMES. HOB ELEVATED. CALL LIGHT WITHIN REACH. PATIENT FRO D/C TODAY. REPORT GIVEN TO FACILIRTY BY MORNING RN. WILL WAIT THE AMBULANCE.
--- NOTE | 2022-02-02 19:50 | NUR ---
RN NOTES EMT'S CAME IN TO PATIENT SAFETY TECH THE PATIENT. REPORT GIVEN, PAPER WORKS GIVEN WELL. ALL BELONGINGS CHECKED.PATIENT REMAINS STABLE. LEFT AT HOSPITAL @ 20:05 [facility].
== END 2022-02-02 20:50 | DRG 871 ==
LOC: ER 19:48 → TELE 01-30 00:13 → ICU 01-30 14:28 → TELE1 02-01 18:20
PROVIDERS: ADMIT Nurse Practitioner Acute Care; ATTEND Student in an Organized Health Care Education/Training Program
DX: A41.9 Sepsis, unspecified organism (principal); G93.41 Metabolic encephalopathy; J15.6 Pneumonia due to other Gram-negative bacteria; R53.2 Functional quadriplegia; J96.01 Acute respiratory failure with hypoxia; N17.9 Acute kidney failure, unspecified; I69.351 Hemiplegia and hemiparesis following cerebral infarction affecting right dominant side; D68.59 Other primary thrombophilia; E87.0 Hyperosmolality and hypernatremia; R65.20 Severe sepsis without septic shock; E78.5 Hyperlipidemia, unspecified; E86.0 Dehydration; I10 Essential (primary) hypertension; N40.0 Benign prostatic hyperplasia without lower urinary tract symptoms; Z20.822 Contact with and (suspected) exposure to COVID-19; Z78.1 Physical restraint status; Z86.16 Personal history of COVID-19; Z93.1 Gastrostomy status; I69.391 Dysphagia following cerebral infarction; R13.10 Dysphagia, unspecified; R79.89 Other specified abnormal findings of blood chemistry; Z77.090 Contact with and (suspected) exposure to asbestos
CPT/HCPCS: 31720; 36415; 36600; 71045-TC; 71250-TC; 80048-TC; 80061-TC; 80076-TC; 81001; 82803-TC; 82962-TC; 83605-TC; 83735-TC; 84100-TC; 84484-TC; 85025-TC; 85730-TC; 87040-TC; 87070-TC; 87081-TC; 87086-TC; 94640-TC; 94760-TC; 94762-TC; 94799-TC; A9563; C9803; G0378; J0692; J0696; J1650; J1815; J2543; J3490; J7030; J7050; J7060; J7070